=== PATIENT | female | born 1950 | race Caucasian/White ===

== ENCOUNTER → 2017-05-31 | Outpatient (CLI) | payer MEDICARE, BC ==
[2017-05-31 23:02] LABS: URINE APPEARANCE HAZY; URINE BILIRUBIN NEGATIVE (NEGATIVE); URINE BLOOD NEGATIVE (NEGATIVE); URINE COLOR YELLOW; URINE GLUCOSE NEGATIVE (NEGATIVE); URINE KETONE NEGATIVE (NEGATIVE); URINE LEUKOCYTE ESTERASE 1+ (NEGATIVE); URINE NITRATE NEGATIVE (NEGATIVE); URINE PROTEIN(semi-quant) NEGATIVE (NEGATIVE); URINE UROBILINOGEN NORMAL (NORMAL); URINE WBC 16-30 /hpf (0-3)
[2017-05-31 23:03] LABS: URINE MUCUS PRESENT (NOT PRESENT)
== END ==
LOC: LAB 16:41
PROVIDERS: Nurse Practitioner Family
DX: N30.00 Acute cystitis without hematuria (principal)

== ENCOUNTER → 2017-06-05 | Outpatient (CLI) | payer MEDICARE, BC ==
[2017-06-05 17:30] LABS: URINE APPEARANCE CLEAR; URINE COLOR YELLOW
[2017-06-05 17:31] LABS: URINE BILIRUBIN NEGATIVE (NEGATIVE); URINE BLOOD TRACE (NEGATIVE); URINE GLUCOSE NEGATIVE (NEGATIVE); URINE KETONE NEGATIVE (NEGATIVE); URINE LEUKOCYTE ESTERASE TRACE (NEGATIVE); URINE NITRATE NEGATIVE (NEGATIVE); URINE PROTEIN(semi-quant) NEGATIVE (NEGATIVE); URINE UROBILINOGEN NORMAL (NORMAL)
== END ==
LOC: LAB 14:28
PROVIDERS: Internal Medicine
DX: N30.00 Acute cystitis without hematuria (principal)

== ENCOUNTER → 2017-08-27 | Outpatient (CLI) | payer MEDICARE, BC ==
[2017-08-27 13:32] LABS: BASO # 0.1 (0.02-0.10); EOS # 0.2 (0.04-0.40); EOS % 2.7 % (1.0-5.0); HEMATOCRIT 42.1 % (37.0-47.0); HEMOGLOBIN 13.4 g/dL (12.5-16.0); LYMPH# 1.7 (1.50-4.00); MEAN CELL VOLUME 102 fl (78-100); MEAN CORPUSCULAR HEMOGLOBIN 33 pg (27-31); MEAN CORPUSCULAR HGB CONC 32 g/dL (33-37); MEAN PLATELET VOLUME 9.8 fl (7.4-10.4); MONO # 0.7 (0.20-0.80); NEU # 5.3 (1.40-6.50); PLATELET COUNT 313 K/mm3 (130-400); RED BLOOD COUNT 4.11 M/mm3 (4.10-5.30); RED CELL DISTRIBUTION WIDTH 12.7 % (11.5-14.5); WHITE BLOOD COUNT 8.1 K/mm3 (4.8-10.8)
[2017-08-27 13:39] LABS: BUN/CREATININE RATIO 11.5 (6.0-26.0); CALCIUM 8.9 mg/dL (8.4-10.2); TOTAL BILIRUBIN 0.2 mg/dL (0.2-1.3); TOTAL PROTEIN 7.8 g/dL (6.3-8.2)
[2017-08-27 14:21] LABS: URINE APPEARANCE HAZY; URINE COLOR YELLOW
[2017-08-27 14:22] LABS: URINE BILIRUBIN NEGATIVE (NEGATIVE); URINE BLOOD NEGATIVE (NEGATIVE); URINE GLUCOSE NEGATIVE (NEGATIVE); URINE KETONE NEGATIVE (NEGATIVE); URINE LEUKOCYTE ESTERASE 1+ (NEGATIVE); URINE NITRATE NEGATIVE (NEGATIVE); URINE PROTEIN(semi-quant) NEGATIVE (NEGATIVE); URINE UROBILINOGEN NORMAL (NORMAL); URINE WBC 16-30 /hpf (0-3)
[2017-08-27 15:06] LABS: ERYTHROCYTE SEDIMENTATION RATE 34 mm/hr (0-30)
== END ==
LOC: LAB 12:48
PROVIDERS: Internal Medicine
DX: Z12.11 Encounter for screening for malignant neoplasm of colon (principal); F32.9 Major depressive disorder, single episode, unspecified; R13.14 Dysphagia, pharyngoesophageal phase; E78.2 Mixed hyperlipidemia; K90.89 Other intestinal malabsorption; R35.0 Frequency of micturition; E53.8 Deficiency of other specified B group vitamins

== ENCOUNTER → 2017-08-30 | Outpatient (CLI) | payer MEDICARE, BC ==
[2017-08-30 12:18] LABS: URINE APPEARANCE HAZY; URINE BILIRUBIN NEGATIVE (NEGATIVE); URINE BLOOD NEGATIVE (NEGATIVE); URINE COLOR YELLOW; URINE GLUCOSE NEGATIVE (NEGATIVE); URINE KETONE NEGATIVE (NEGATIVE); URINE PROTEIN(semi-quant) NEGATIVE (NEGATIVE); URINE UROBILINOGEN NORMAL (NORMAL)
[2017-08-30 12:22] LABS: URINE LEUKOCYTE ESTERASE 1+ (NEGATIVE); URINE NITRATE POSITIVE (NEGATIVE)
== END ==
LOC: LAB 07:50
PROVIDERS: Internal Medicine
DX: Z12.11 Encounter for screening for malignant neoplasm of colon (principal); R35.0 Frequency of micturition

== ENCOUNTER → 2017-11-29 | Outpatient (CLI) | payer MEDICARE, BC | LOC: LAB 10:20 | DX: K90.9 Intestinal malabsorption, unspecified (principal) ==

== ENCOUNTER 2017-12-05 09:23 | Emergency (ER) | payer MEDICARE, BC ==
[~2017-12-05] VITALS: Ht 162.6 cm; Wt 90.5 kg
[2017-12-05] MEDS ORDERED: RANITIDINE HCL300 M1 PO (09:30)
[2017-12-05] MEDS ORDERED: SIMVASTATIN40 M1 PO (09:30)
[2017-12-05] MEDS ORDERED: CELEXA 20MG20 MG/TA1 PO (09:30)
[2017-12-05 10:14] LABS: BASO # 0.1 (0.02-0.10); EOS # 0.1 (0.04-0.40); EOS % 1.6 % (1.0-5.0); HEMATOCRIT 43.6 % (37.0-47.0); HEMOGLOBIN 14.1 g/dL (12.5-16.0); LYMPH# 1.6 (1.50-4.00); MEAN CELL VOLUME 102 fl (78-100); MEAN CORPUSCULAR HEMOGLOBIN 33 pg (27-31); MEAN CORPUSCULAR HGB CONC 32 g/dL (33-37); MEAN PLATELET VOLUME 8.9 fl (7.4-10.4); MONO # 1.1 (0.20-0.80); NEU # 6.1 (1.40-6.50); PLATELET COUNT 396 K/mm3 (130-400); RED BLOOD COUNT 4.26 M/mm3 (4.10-5.30); RED CELL DISTRIBUTION WIDTH 13.2 % (11.5-14.5)
[2017-12-05 10:26] LABS: URINE APPEARANCE CLEAR; URINE BILIRUBIN NEGATIVE (NEGATIVE); URINE BLOOD NEGATIVE (NEGATIVE); URINE COLOR YELLOW; URINE GLUCOSE NEGATIVE (NEGATIVE); URINE KETONE NEGATIVE (NEGATIVE); URINE LEUKOCYTE ESTERASE NEGATIVE (NEGATIVE); URINE MUCUS PRESENT (NOT PRESENT); URINE NITRATE NEGATIVE (NEGATIVE); URINE PROTEIN(semi-quant) TRACE mg/dL (NEGATIVE); URINE UROBILINOGEN NORMAL (NORMAL)
[2017-12-05 10:30] LABS: ALBUMIN 4.4 g/dL (3.5-5.0); CALCIUM 9.8 mg/dL (8.4-10.2); POTASSIUM 4.2 mmol/L (3.6-5.0); TOTAL BILIRUBIN 0.6 mg/dL (0.2-1.3); TOTAL PROTEIN 8.3 g/dL (6.3-8.2)
[2017-12-05 12:33] VITALS: BP 158/93
== END 2017-12-05 11:56 | disposition home or self-care (01) ==
LOC: ED 09:23
PROVIDERS: Nurse Practitioner Primary Care
DX: K59.00 Constipation, unspecified (principal); I10 Essential (primary) hypertension; E78.5 Hyperlipidemia, unspecified; K21.9 Gastro-esophageal reflux disease without esophagitis; K44.9 Diaphragmatic hernia without obstruction or gangrene; F41.9 Anxiety disorder, unspecified; Z79.899 Other long term (current) drug therapy; K40.90 Unilateral inguinal hernia, without obstruction or gangrene, not specified as recurrent
CPT/HCPCS: Q9967

== ENCOUNTER → 2017-12-26 | Outpatient (CLI) | payer MEDICARE, BC ==
[2017-12-05 12:33] VITALS: BP 158/93
[~2017-12-26] MED LIST: CELEXA 20MG20 MG/TA1 PO; RANITIDINE HCL300 M1 PO; SIMVASTATIN40 M1 PO
== END ==
LOC: RAD 09:58
DX: M25.561 Pain in right knee (principal); Z96.651 Presence of right artificial knee joint; Z96.652 Presence of left artificial knee joint; Z98.890 Other specified postprocedural states

== ENCOUNTER → 2018-02-06 | Outpatient (CLI) | payer MEDICARE, BC | LOC: RAD 08:24 | DX: M25.561 Pain in right knee (principal); Z96.653 Presence of artificial knee joint, bilateral; Z98.890 Other specified postprocedural states ==

== ENCOUNTER 2018-02-19 09:30 | Outpatient (RCR) | payer MEDICARE, BC | END 2018-02-19 10:00 | disposition home or self-care (01) | LOC: PT 09:30 | DX: M25.562 Pain in left knee (principal); M25.561 Pain in right knee | CPT/HCPCS: G8978-GP; G8979-GP ==

== ENCOUNTER → 2018-09-11 | Outpatient (CLI) | payer MEDICARE, BC | LOC: RAD 08:30 | DX: M19.012 Primary osteoarthritis, left shoulder (principal) ==

== ENCOUNTER 2018-11-14 08:30 | Outpatient (RCR) | payer MEDICARE, BC | END 2018-12-19 | disposition home or self-care (01) | LOC: PT | DX: M75.112 Incomplete rotator cuff tear or rupture of left shoulder, not specified as traumatic (principal) ==

== ENCOUNTER → 2019-09-10 | Outpatient (CLI) | payer MEDICARE, BC | LOC: RAD 08:29 | DX: M25.512 Pain in left shoulder (principal); M19.012 Primary osteoarthritis, left shoulder ==

== ENCOUNTER → 2019-10-01 | Outpatient (CLI) | payer MEDICARE, BC ==
[2019-10-01 07:55] LABS: BASO # 0.1 (0.02-0.10); EOS # 0.4 (0.04-0.40); EOS % 4.1 % (1.0-5.0); HEMATOCRIT 41.1 % (37.0-47.0); HEMOGLOBIN 12.9 g/dL (12.5-16.0); MEAN CELL VOLUME 98 fl (78-100); MEAN CORPUSCULAR HEMOGLOBIN 31 pg (27-31); MEAN CORPUSCULAR HGB CONC 31 g/dL (33-37); MEAN PLATELET VOLUME 8.5 fl (7.4-10.4); MONO # 0.6 (0.20-0.80); NEU # 5.4 (1.40-6.50); PLATELET COUNT 440 K/mm3 (130-400); WHITE BLOOD COUNT 8.5 K/mm3 (4.8-10.8)
[2019-10-01 08:04] LABS: ALBUMIN 3.9 g/dL (3.4-4.8); POTASSIUM 4.1 mmol/L (3.5-5.1)
[2019-10-01 08:05] LABS: CALCIUM 9.3 mg/dL (8.3-10.5)
[2019-10-01 08:07] LABS: TOTAL PROTEIN 7.1 g/dL (6.2-8.1)
[2019-10-01 08:09] LABS: TOTAL BILIRUBIN 0.5 mg/dL (0.2-1.2)
[2019-10-01 08:57] LABS: ERYTHROCYTE SEDIMENTATION RATE 27 mm/hr (0-30)
[2019-10-01 09:10] LABS: PH-URINE 6.5 (5.0 - 8.0); URINE APPEARANCE CLEAR; URINE BILIRUBIN NEGATIVE (NEGATIVE); URINE BLOOD NEGATIVE (NEGATIVE); URINE COLOR YELLOW; URINE GLUCOSE NEGATIVE (NEGATIVE); URINE KETONE NEGATIVE (NEGATIVE); URINE LEUKOCYTE ESTERASE NEGATIVE (NEGATIVE); URINE MUCUS PRESENT (NOT PRESENT); URINE NITRATE NEGATIVE (NEGATIVE); URINE PROTEIN(semi-quant) TRACE mg/dL (NEGATIVE); URINE UROBILINOGEN NORMAL (NORMAL); URINE WBC 0-1 /hpf (0-3)
== END ==
LOC: LAB 07:36
PROVIDERS: Internal Medicine
DX: Z12.11 Encounter for screening for malignant neoplasm of colon (principal); E78.2 Mixed hyperlipidemia; F32.9 Major depressive disorder, single episode, unspecified; K90.9 Intestinal malabsorption, unspecified; E53.8 Deficiency of other specified B group vitamins; R35.0 Frequency of micturition

== ENCOUNTER → 2019-10-20 | Outpatient (CLI) | payer MEDICARE, BC | LOC: LAB 10:31 | DX: Z12.11 Encounter for screening for malignant neoplasm of colon (principal); F32.9 Major depressive disorder, single episode, unspecified; R35.0 Frequency of micturition ==

== ENCOUNTER → 2019-12-23 | Outpatient (CLI) | payer MEDICARE, BC | LOC: MAMMO 07:47 | DX: Z12.31 Encounter for screening mammogram for malignant neoplasm of breast (principal) ==

== ENCOUNTER → 2020-07-22 | Outpatient (CLI) | payer MEDICARE, BC | LOC: CARDREHAB 11:18 | DX: G47.19 Other hypersomnia (principal) | CPT/HCPCS: G0399 ==

== ENCOUNTER → 2021-02-02 | Outpatient (CLI) | payer MEDICARE, BC | LOC: RAD 12:55 → MAMMO 13:45 | DX: M85.80 Other specified disorders of bone density and structure, unspecified site (principal) ==

== ENCOUNTER → 2021-02-02 | Outpatient (CLI) | payer MEDICARE, BC | LOC: MAMMO 12:52 | DX: Z12.31 Encounter for screening mammogram for malignant neoplasm of breast (principal) ==

== ENCOUNTER → 2021-02-24 | Outpatient (CLI) | payer MEDICARE, BC ==
[~2021-02-24] MED LIST changes: +CYANOCOBAL1000 MCG/1 IM; +FAMOTIDINE40 M1 PO; +FERREX 150150 MG PO; +PHARMASSURE FO0.4 MG PO; +VITAMIN C500 M7 PO
[2021-02-24 13:16] LABS: BASO # 0.04 K/mm3 (0.02-0.10); EOS % 1.1 % (1.0-5.0); HEMATOCRIT 42.4 % (37.0-47.0); HEMOGLOBIN 13.3 g/dL (12.5-16.0); LYMPH# 1.54 K/mm3 (1.50-4.00); MEAN CELL VOLUME 103 fl (78-100); MEAN CORPUSCULAR HEMOGLOBIN 32 pg (27-31); MEAN CORPUSCULAR HGB CONC 31 g/dL (33-37); MEAN PLATELET VOLUME 8.7 fl (7.4-10.4); MONO # 0.69 K/mm3 (0.20-0.80); NEU # 6.54 K/mm3 (1.40-6.50); PLATELET COUNT 352 K/mm3 (130-400); RED BLOOD COUNT 4.12 M/mm3 (4.10-5.30); RED CELL DISTRIBUTION WIDTH 12.9 % (11.5-14.5); WHITE BLOOD COUNT 8.9 K/mm3 (4.8-10.8)
[2021-02-24 13:18] LABS: ALBUMIN 4.2 g/dL (3.4-4.8); POTASSIUM 3.8 mmol/L (3.5-5.1)
[2021-02-24 13:19] LABS: CALCIUM 9.9 mg/dL (8.3-10.5)
[2021-02-24 13:21] LABS: TOTAL PROTEIN 7.5 g/dL (6.2-8.1)
[2021-02-24 13:22] LABS: TOTAL BILIRUBIN 0.5 mg/dL (0.2-1.2)
[2021-02-24 13:27] LABS: MAGNESIUM 1.99 mg/dL (1.60-2.60)
[2021-02-24 13:44] LABS: PROTHROMBIN TIME 10.2 SECONDS (9.0-12.0)
[2021-02-24 16:31] LABS: URINE APPEARANCE HAZY; URINE BILIRUBIN NEGATIVE (NEGATIVE); URINE COLOR LIGHT YELLOW; URINE GLUCOSE NEGATIVE (NEGATIVE); URINE KETONE NEGATIVE (NEGATIVE); URINE NITRATE POSITIVE (NEGATIVE); URINE PROTEIN(semi-quant) 1+ (NEGATIVE); URINE UROBILINOGEN NORMAL (NORMAL)
[2021-02-24 16:32] LABS: URINE BLOOD TRACE (NEGATIVE); URINE LEUKOCYTE ESTERASE 2+ (NEGATIVE); URINE WBC 16-30 /hpf (0-3)
== END ==
LOC: RAD 12:09
PROVIDERS: Internal Medicine
DX: Z01.811 Encounter for preprocedural respiratory examination (principal); K44.9 Diaphragmatic hernia without obstruction or gangrene; K90.9 Intestinal malabsorption, unspecified; E78.2 Mixed hyperlipidemia

== ENCOUNTER → 2021-02-28 | Outpatient (CLI) | payer MEDICARE, BC ==
[~2021-02-28] VITALS: Ht 162.6 cm; Wt 90.5 kg
[2021-02-28 13:28] LABS: URINE APPEARANCE CLEAR; URINE BILIRUBIN NEGATIVE (NEGATIVE); URINE BLOOD NEGATIVE (NEGATIVE); URINE COLOR YELLOW; URINE GLUCOSE NEGATIVE (NEGATIVE); URINE KETONE NEGATIVE (NEGATIVE); URINE LEUKOCYTE ESTERASE NEGATIVE (NEGATIVE); URINE MUCUS PRESENT (NOT PRESENT); URINE NITRATE NEGATIVE (NEGATIVE); URINE PROTEIN(semi-quant) 1+ (NEGATIVE); URINE UROBILINOGEN NORMAL (NORMAL)
[2021-02-28 17:34] VITALS: BP 162/91
[2021-02-28 18:44] LABS: URINE APPEARANCE CLEAR; URINE COLOR YELLOW
[2021-02-28 18:45] LABS: PH-URINE 6.5 (5.0 - 8.0); URINE BILIRUBIN NEGATIVE (NEGATIVE); URINE BLOOD NEGATIVE (NEGATIVE); URINE GLUCOSE NEGATIVE (NEGATIVE); URINE KETONE NEGATIVE (NEGATIVE); URINE LEUKOCYTE ESTERASE NEGATIVE (NEGATIVE); URINE MUCUS PRESENT (NOT PRESENT); URINE NITRATE NEGATIVE (NEGATIVE); URINE PROTEIN(semi-quant) 1+ (NEGATIVE); URINE UROBILINOGEN NORMAL (NORMAL); URINE WBC 0-1 /hpf (0-3)
== END ==
LOC: LAB 10:49 → AMSURD 10:49
PROVIDERS: Internal Medicine
DX: Z01.89 Encounter for other specified special examinations (principal); N39.0 Urinary tract infection, site not specified

== ENCOUNTER → 2021-03-07 | Outpatient (RCR) | payer MEDICARE, BC | LOC: PT | DX: Z96.649 Presence of unspecified artificial hip joint (principal) ==

== ENCOUNTER 2021-04-07 08:53 | Outpatient (RCR) | payer MEDICARE, BC | END 2021-05-05 | disposition still patient (30) | LOC: PT | DX: Z96.649 Presence of unspecified artificial hip joint (principal) ==

== ENCOUNTER 2021-05-09 09:20 | Outpatient (RCR) | payer MEDICARE, BC | END 2021-06-04 | disposition still patient (30) | LOC: PT | DX: Z96.649 Presence of unspecified artificial hip joint (principal) ==

== ENCOUNTER 2021-09-27 09:39 | Outpatient (RCR) | payer MEDICARE, BC | END 2021-10-05 | disposition home or self-care (01) | LOC: PT | DX: M48.061 Spinal stenosis, lumbar region without neurogenic claudication (principal) ==

== ENCOUNTER 2021-10-07 08:21 | Outpatient (RCR) | payer MEDICARE, BC | END 2021-11-01 14:28 | disposition home or self-care (01) | LOC: PT 08:21 | DX: M48.061 Spinal stenosis, lumbar region without neurogenic claudication (principal) ==

== ENCOUNTER → 2021-10-21 | Outpatient (CLI) | payer MEDICARE, BC ==
[2021-10-21 14:12] LABS: BASO # 0.08 K/mm3 (0.02-0.10); EOS # 0.25 K/mm3 (0.04-0.40); HEMATOCRIT 39.4 % (37.0-47.0); HEMOGLOBIN 12.4 g/dL (12.5-16.0); LYMPH# 1.22 K/mm3 (1.50-4.00); MEAN CELL VOLUME 101 fl (78-100); MEAN CORPUSCULAR HEMOGLOBIN 32 pg (27-31); MEAN CORPUSCULAR HGB CONC 32 g/dL (33-37); MEAN PLATELET VOLUME 8.7 fl (7.4-10.4); MONO # 0.89 K/mm3 (0.20-0.80); NEU # 5.87 K/mm3 (1.40-6.50); PLATELET COUNT 382 K/mm3 (130-400); RED BLOOD COUNT 3.92 M/mm3 (4.10-5.30); RED CELL DISTRIBUTION WIDTH 14.2 % (11.5-14.5); WHITE BLOOD COUNT 8.3 K/mm3 (4.8-10.8)
[2021-10-21 14:22] LABS: ALBUMIN 4.2 g/dL (3.4-4.8)
[2021-10-21 14:24] LABS: CALCIUM 9.8 mg/dL (8.3-10.5)
[2021-10-21 14:25] LABS: PROTHROMBIN TIME 9.8 SECONDS (9.0-12.0); TOTAL PROTEIN 7.6 g/dL (6.2-8.1)
[2021-10-21 14:27] LABS: TOTAL BILIRUBIN 0.3 mg/dL (0.2-1.2)
[2021-10-21 14:32] LABS: MAGNESIUM 2.03 mg/dL (1.60-2.60)
[2021-10-21 15:01] LABS: URINE APPEARANCE CLEAR; URINE BILIRUBIN NEGATIVE (NEGATIVE); URINE BLOOD NEGATIVE (NEGATIVE); URINE COLOR YELLOW; URINE GLUCOSE NEGATIVE (NEGATIVE); URINE KETONE NEGATIVE (NEGATIVE); URINE LEUKOCYTE ESTERASE NEGATIVE (NEGATIVE); URINE NITRATE POSITIVE (NEGATIVE); URINE PROTEIN(semi-quant) NEGATIVE (NEGATIVE); URINE UROBILINOGEN NORMAL (NORMAL)
== END ==
LOC: LAB 13:16
PROVIDERS: Internal Medicine
DX: Z01.818 Encounter for other preprocedural examination (principal)

== ENCOUNTER → 2021-10-24 | Outpatient (CLI) | payer MEDICARE, BC | LOC: LAB 14:20 | DX: N39.0 Urinary tract infection, site not specified (principal) ==

== ENCOUNTER → 2021-10-27 | Outpatient (CLI) | payer MEDICARE, BC ==
[2021-10-27 13:31] LABS: URINE APPEARANCE CLEAR; URINE BILIRUBIN NEGATIVE (NEGATIVE); URINE BLOOD NEGATIVE (NEGATIVE); URINE COLOR YELLOW; URINE GLUCOSE NEGATIVE (NEGATIVE); URINE KETONE NEGATIVE (NEGATIVE); URINE LEUKOCYTE ESTERASE NEGATIVE (NEGATIVE); URINE NITRATE NEGATIVE (NEGATIVE); URINE PROTEIN(semi-quant) NEGATIVE (NEGATIVE); URINE UROBILINOGEN NORMAL (NORMAL)
== END ==
LOC: LAB 13:08
PROVIDERS: Internal Medicine
DX: N39.0 Urinary tract infection, site not specified (principal)

== ENCOUNTER 2021-12-06 08:00 | Outpatient (RCR) | payer MEDICARE, BC | END 2022-01-04 | disposition still patient (30) | LOC: PT | DX: M16.12 Unilateral primary osteoarthritis, left hip (principal) ==

== ENCOUNTER → 2022-04-07 | Outpatient (CLI) | payer MEDICARE, BC ==
[2022-04-07 08:12] LABS: BASO # 0.06 K/mm3 (0.02-0.10); EOS # 0.25 K/mm3 (0.04-0.40); EOS % 3.6 % (1.0-5.0); HEMATOCRIT 38.9 % (37.0-47.0); HEMOGLOBIN 11.8 g/dL (12.5-16.0); LYMPH# 1.27 K/mm3 (1.50-4.00); MEAN CELL VOLUME 95 fl (78-100); MEAN CORPUSCULAR HEMOGLOBIN 29 pg (27-31); MEAN CORPUSCULAR HGB CONC 30 g/dL (33-37); MEAN PLATELET VOLUME 9.1 fl (7.4-10.4); MONO # 0.64 K/mm3 (0.20-0.80); NEU # 4.81 K/mm3 (1.40-6.50); PLATELET COUNT 401 K/mm3 (130-400); RED CELL DISTRIBUTION WIDTH 15.7 % (11.5-14.5)
[2022-04-07 08:18] LABS: ALBUMIN 4.2 g/dL (3.4-4.8); POTASSIUM 4.2 mmol/L (3.5-5.1)
[2022-04-07 08:19] LABS: CALCIUM 10.3 mg/dL (8.3-10.5)
[2022-04-07 08:20] LABS: TOTAL PROTEIN 8.5 g/dL (6.2-8.1)
[2022-04-07 08:31] LABS: URINE APPEARANCE HAZY; URINE COLOR YELLOW
[2022-04-07 08:32] LABS: URINE BILIRUBIN NEGATIVE (NEGATIVE); URINE BLOOD TRACE (NEGATIVE); URINE GLUCOSE NEGATIVE (NEGATIVE); URINE KETONE NEGATIVE (NEGATIVE); URINE LEUKOCYTE ESTERASE 1+ (NEGATIVE); URINE MUCUS PRESENT (NOT PRESENT); URINE NITRATE POSITIVE (NEGATIVE); URINE PROTEIN(semi-quant) 1+ (NEGATIVE); URINE UROBILINOGEN NORMAL (NORMAL); URINE WBC 16-30 /hpf (0-3)
[2022-04-07 08:49] LABS: TOTAL BILIRUBIN 0.4 mg/dL (0.2-1.2)
[2022-04-07 09:43] LABS: ERYTHROCYTE SEDIMENTATION RATE 55 mm/hr (0-30)
== END ==
LOC: RAD 07:13
PROVIDERS: Internal Medicine
DX: Z12.11 Encounter for screening for malignant neoplasm of colon (principal); K90.9 Intestinal malabsorption, unspecified; K21.9 Gastro-esophageal reflux disease without esophagitis; E78.2 Mixed hyperlipidemia; R82.90 Unspecified abnormal findings in urine; F41.1 Generalized anxiety disorder; Z82.49 Family history of ischemic heart disease and other diseases of the circulatory system

== ENCOUNTER → 2023-01-08 | Outpatient (CLI) | payer MEDICARE, BC ==
[~2023-01-08] VITALS: Ht 162.6 cm; Wt 86.3 kg
[~2023-01-08] MED LIST changes: +VITAMIN D
[2023-01-08 09:24] VITALS: BP 134/80
== END ==
LOC: AMSURD 08:51
DX: E55.9 Vitamin D deficiency, unspecified (principal)
CPT/HCPCS: J3420

== ENCOUNTER → 2023-02-08 | Outpatient (CLI) | payer MEDICARE, BC ==
[~2023-02-08] VITALS: Ht 162.6 cm; Wt 86.3 kg
[2023-02-08 09:17] VITALS: BP 124/79
== END ==
LOC: AMSURD 08:52
DX: E53.8 Deficiency of other specified B group vitamins (principal)
CPT/HCPCS: J3420

== ENCOUNTER → 2023-02-27 | Outpatient (CLI) | payer MEDICARE | LOC: RAD 10:18 → MAMMO 11:00 | DX: M85.832 Other specified disorders of bone density and structure, left forearm (principal) ==

== ENCOUNTER → 2023-02-27 | Outpatient (CLI) | payer MEDICARE | LOC: MAMMO 10:22 | DX: Z12.31 Encounter for screening mammogram for malignant neoplasm of breast (principal) ==

== ENCOUNTER → 2023-03-15 | Outpatient (CLI) | payer MEDICARE, BC ==
[~2023-03-15] VITALS: Ht 162.6 cm; Wt 86.3 kg
[2023-03-15 10:23] VITALS: BP 125/69
== END ==
LOC: AMSURD 09:57
DX: E53.8 Deficiency of other specified B group vitamins (principal)
CPT/HCPCS: J3420

== ENCOUNTER → 2023-07-25 | Outpatient (CLI) | payer MEDICARE, BC ==
[2023-07-25 14:54] LABS: BASO # 0.07 K/mm3 (0.02-0.10); EOS # 0.19 K/mm3 (0.04-0.40); EOS % 2.5 % (1.0-5.0); HEMATOCRIT 40.3 % (37.0-47.0); HEMOGLOBIN 12.4 g/dL (12.5-16.0); LYMPH# 1.76 K/mm3 (1.50-4.00); MEAN CELL VOLUME 96 fl (78-100); MEAN CORPUSCULAR HEMOGLOBIN 30 pg (27-31); MEAN CORPUSCULAR HGB CONC 31 g/dL (33-37); MEAN PLATELET VOLUME 9.2 fl (7.4-10.4); MONO # 0.83 K/mm3 (0.20-0.80); NEU # 4.85 K/mm3 (1.40-6.50); PLATELET COUNT 378 K/mm3 (130-400); RED BLOOD COUNT 4.19 M/mm3 (4.10-5.30); RED CELL DISTRIBUTION WIDTH 15.1 % (11.5-14.5); WHITE BLOOD COUNT 7.7 K/mm3 (4.8-10.8)
[2023-07-25 14:58] LABS: CLUE CELLS PRESENT (Not Observd)
[2023-07-25 15:01] LABS: ALBUMIN 4.3 g/dL (3.4-4.8)
[2023-07-25 15:03] LABS: CALCIUM 9.8 mg/dL (8.3-10.5)
[2023-07-25 15:04] LABS: TOTAL PROTEIN 7.8 g/dL (6.2-8.1)
[2023-07-25 15:06] LABS: TOTAL BILIRUBIN 0.2 mg/dL (0.2-1.2)
[2023-07-25 15:13] LABS: URINE APPEARANCE SLIGHTLY CLOUDY (CLEAR); URINE BILIRUBIN NEGATIVE (NEGATIVE); URINE BLOOD NEGATIVE (NEGATIVE); URINE COLOR YELLOW (YELLOW); URINE GLUCOSE NEGATIVE (NEGATIVE); URINE KETONE NEGATIVE (NEGATIVE); URINE NITRATE NEGATIVE (NEGATIVE); URINE PROTEIN(semi-quant) NEGATIVE (NEGATIVE)
[2023-07-25 15:14] LABS: URINE LEUKOCYTE ESTERASE TRACE (NEGATIVE)
== END ==
LOC: LAB 14:42
PROVIDERS: Nurse Practitioner Family
DX: R10.30 Lower abdominal pain, unspecified (principal)
CPT/HCPCS: Q0111

== ENCOUNTER → 2023-07-30 | Outpatient (CLI) | payer MEDICARE, BC ==
[2023-07-30 10:29] LABS: PH-URINE 6.5 (5.0 - 8.0); URINE APPEARANCE CLEAR (CLEAR); URINE BILIRUBIN NEGATIVE (NEGATIVE); URINE BLOOD NEGATIVE (NEGATIVE); URINE COLOR YELLOW (YELLOW); URINE GLUCOSE NEGATIVE (NEGATIVE); URINE KETONE NEGATIVE (NEGATIVE); URINE LEUKOCYTE ESTERASE NEGATIVE (NEGATIVE); URINE NITRATE NEGATIVE (NEGATIVE); URINE PROTEIN(semi-quant) NEGATIVE (NEGATIVE)
== END ==
LOC: LAB 09:33
PROVIDERS: Internal Medicine
DX: N39.0 Urinary tract infection, site not specified (principal)

== ENCOUNTER → 2023-08-03 | Outpatient (CLI) | payer MEDICARE, BC ==
[2023-08-03 13:04] LABS: URINE APPEARANCE CLEAR (CLEAR); URINE COLOR YELLOW (YELLOW); URINE GLUCOSE NEGATIVE (NEGATIVE); URINE PROTEIN(semi-quant) NEGATIVE (NEGATIVE)
[2023-08-03 13:05] LABS: URINE BILIRUBIN NEGATIVE (NEGATIVE); URINE BLOOD TRACE-INTACT (NEGATIVE); URINE KETONE NEGATIVE (NEGATIVE); URINE LEUKOCYTE ESTERASE NEGATIVE (NEGATIVE); URINE NITRATE NEGATIVE (NEGATIVE); URINE WBC 0-1 /hpf (0-3)
== END ==
LOC: LAB 12:39
PROVIDERS: Internal Medicine
DX: R10.2 Pelvic and perineal pain (principal)

== ENCOUNTER → 2023-08-20 | Outpatient (CLI) | payer MEDICARE, BC ==
[~2023-08-20] VITALS: Ht 162.6 cm; Wt 86.3 kg
[2023-08-20 09:19] VITALS: BP 119/69
== END ==
LOC: AMSURD 09:03
DX: E53.8 Deficiency of other specified B group vitamins (principal)
CPT/HCPCS: J3420

== ENCOUNTER → 2023-09-24 | Outpatient (CLI) | payer MEDICARE, BC ==
[~2023-09-24] VITALS: Ht 162.6 cm; Wt 86.3 kg
[2023-09-24 09:36] VITALS: BP 126/64
== END ==
LOC: AMSURD 09:03
DX: E53.8 Deficiency of other specified B group vitamins (principal)
CPT/HCPCS: J3420

== ENCOUNTER → 2023-11-12 | Day surgery (SDC) | payer MEDICARE, BC ==
[~2023-11-12] MED LIST changes: +Lidocaine PF 2% (20 MG/ML) 5 ML VIAL ONE
== END | disposition home or self-care (01) ==
LOC: MSO 02:45
DX: K44.9 Diaphragmatic hernia without obstruction or gangrene (principal)
CPT/HCPCS: 00731; J2704; J7120

== ENCOUNTER → 2023-11-16 | Outpatient (CLI) | payer MEDICARE, BC ==
[~2023-11-16] MED LIST changes: -Lidocaine PF 2% (20 MG/ML) 5 ML VIAL ONE
== END ==
LOC: LAB 10:26
DX: N39.0 Urinary tract infection, site not specified (principal)

== ENCOUNTER → 2023-11-26 | Outpatient (CLI) | payer MEDICARE, BC ==
[~2023-11-26] VITALS: Ht 162.6 cm; Wt 86.3 kg
[2023-11-26 09:14] VITALS: BP 138/88
== END ==
LOC: AMSURD 09:01
DX: E53.8 Deficiency of other specified B group vitamins (principal)
CPT/HCPCS: J3420

== ENCOUNTER → 2023-12-31 | Outpatient (CLI) | payer MEDICARE, BC ==
[2023-12-31 09:19] VITALS: BP 132/66
== END ==
LOC: AMSURD 09:01
DX: E53.8 Deficiency of other specified B group vitamins (principal)
CPT/HCPCS: J3420

== ENCOUNTER → 2024-02-04 | Outpatient (CLI) | payer MEDICARE, BC ==
[~2024-02-04] VITALS: Ht 162.6 cm; Wt 86.3 kg
[2024-02-04 09:12] VITALS: BP 113/89
== END ==
LOC: AMSURD 09:00
DX: E53.8 Deficiency of other specified B group vitamins (principal)
CPT/HCPCS: J3420

== ENCOUNTER → 2024-03-03 | Outpatient (CLI) | payer MEDICARE, BC ==
[~2024-03-03] VITALS: Ht 162.6 cm; Wt 86.3 kg
[2024-03-03 09:17] VITALS: BP 122/75
== END ==
LOC: AMSURD 09:03
DX: E53.8 Deficiency of other specified B group vitamins (principal)
CPT/HCPCS: J3420

== ENCOUNTER → 2024-03-04 | Outpatient (CLI) | payer MEDICARE, BC | LOC: MAMMO 11:21 | DX: Z12.31 Encounter for screening mammogram for malignant neoplasm of breast (principal) ==

== ENCOUNTER → 2024-03-31 | Outpatient (CLI) | payer MEDICARE, BC ==
[~2024-03-31] VITALS: Ht 162.6 cm; Wt 86.3 kg
[2024-03-31 10:05] VITALS: BP 106/69
== END ==
LOC: AMSURD 09:49
DX: E53.8 Deficiency of other specified B group vitamins (principal)
CPT/HCPCS: J3420

== ENCOUNTER → 2024-04-24 | Outpatient (CLI) | payer MEDICARE, BC ==
[2024-04-24 15:44] LABS: BASO # 0.05 K/mm3 (0.02-0.10); EOS # 0.17 K/mm3 (0.04-0.40); EOS % 2.2 % (1.0-5.0); HEMOGLOBIN 12.9 g/dL (12.5-16.0); LYMPH# 1.52 K/mm3 (1.50-4.00); MEAN CELL VOLUME 100 fl (78-100); MEAN CORPUSCULAR HEMOGLOBIN 32 pg (27-31); MEAN CORPUSCULAR HGB CONC 32 g/dL (33-37); MEAN PLATELET VOLUME 9.1 fl (7.4-10.4); MONO # 0.79 K/mm3 (0.20-0.80); NEU # 5.05 K/mm3 (1.40-6.50); PLATELET COUNT 305 K/mm3 (130-400); RED CELL DISTRIBUTION WIDTH 13.5 % (11.5-14.5); WHITE BLOOD COUNT 7.6 K/mm3 (4.8-10.8)
[2024-04-24 16:05] LABS: ALBUMIN 4.2 g/dL (3.4-4.8)
[2024-04-24 16:07] LABS: TOTAL PROTEIN 7.9 g/dL (6.2-8.1)
[2024-04-24 16:09] LABS: TOTAL BILIRUBIN 0.3 mg/dL (0.2-1.2)
[2024-04-24 16:10] LABS: URINE APPEARANCE SLIGHTLY CLOUDY (CLEAR); URINE BILIRUBIN NEGATIVE (NEGATIVE); URINE COLOR YELLOW (YELLOW); URINE GLUCOSE NEGATIVE (NEGATIVE); URINE KETONE NEGATIVE (NEGATIVE); URINE NITRATE POSITIVE (NEGATIVE); URINE PROTEIN(semi-quant) NEGATIVE (NEGATIVE)
[2024-04-24 16:11] LABS: URINE BLOOD TRACE-INTACT (NEGATIVE); URINE LEUKOCYTE ESTERASE TRACE (NEGATIVE); URINE WBC >50 /hpf (0-3)
[2024-04-24 16:14] LABS: MAGNESIUM 2.06 mg/dL (1.60-2.60)
== END ==
LOC: LAB 15:05
PROVIDERS: Internal Medicine
DX: Z12.11 Encounter for screening for malignant neoplasm of colon (principal); K90.9 Intestinal malabsorption, unspecified; F41.1 Generalized anxiety disorder; R73.03 Prediabetes; N39.0 Urinary tract infection, site not specified; E78.2 Mixed hyperlipidemia

== ENCOUNTER → 2024-05-07 | Outpatient (CLI) | payer MEDICARE, BC ==
[~2024-05-07] VITALS: Ht 162.6 cm; Wt 86.3 kg
[2024-05-07 14:35] VITALS: BP 105/68
== END ==
LOC: AMSURD 13:55
DX: E53.8 Deficiency of other specified B group vitamins (principal)
CPT/HCPCS: J3420

== ENCOUNTER → 2024-05-24 | Outpatient (REF) | payer MEDICARE, BC | LOC: LAB 09:57 | DX: R30.0 Dysuria (principal) ==